=== PATIENT | male | born 2005 | race Hispanic/Latino ===

== ENCOUNTER 2025-02-20 14:05 | Emergency (ER) | payer SELFPAY ==
[~2025-02-20] VITALS: Ht 193 cm; Wt 68.0 kg
[2025-02-20 14:05] VITALS: BP 154/85; PULSE 76; RESP 18; TEMP 98.6; O2SAT 99
[2025-02-20] MEDS ORDERED: ZOFRAN ODT ONE (14:19)
[2025-02-20] MEDS ORDERED: BENADRYL ONE (14:19)
[2025-02-20] MEDS: ZOFRAN ODT SL STA (14:22)
[2025-02-20] MEDS: BENADRYL IM STA (14:23)
[2025-02-20 14:54] VITALS: BP 125/71; PULSE 62; RESP 18; O2SAT 99
== END 2025-02-20 14:51 | disposition home or self-care (01) ==
LOC: ER 14:05
DX: F41.9 Anxiety disorder, unspecified (principal); R11.0 Nausea
CPT/HCPCS: 99283; J1200